=== PATIENT | male | born 1955 | race Caucasian/White ===

== ENCOUNTER 2024-12-29 11:18 | Emergency (ER) | payer MEDICARE, SELFPAY ==
[2024-12-29 11:20] VITALS: BP 172/77; PULSE 71; RESP 19; TEMP 35.6; O2SAT 100; BMI 27.6
[2024-12-29] MEDS: 0.9% Normal Saline (1000mL) 1,000 ML 999 ML IV (11:31)
[2024-12-29] MEDS: Ondansetron 4 MG/2 ML Vial IV ×3 (11:31→13:38)
--- NOTE | 2024-12-29 11:31 | ED.VIS.GI ---
HPI HPI - GI History of Present Illness Chief Complaint: Nausea/Vomiting Informant: patient Abdominal Pain/Flank Pain Onset: - (Denies abdominal pain.) Nausea/Vomiting/Emesis GI Symptom: Positive for Nausea and Vomiting Onset: Today and Yesterday Severity: Moderate Diarrhea/Melena/Hematochezia GI Symptom: Negative for Diarrhea, Melena or Hematochezia Associated Symptoms Associated Symptoms: Negative for Dysuria, Frequency, Hematuria or Urgency Narrative Narrative: 69-year-old male right history of recently diagnosed prostate cancer. No mets. States otherwise pretty healthy has had a history of gout before. States yesterday afternoon he started having nausea vomiting. No diarrhea. No abdominal pain. No dysuria. Subjective fever. at home not sick. No known exposure. Prior similar symptoms: Yes Recent Illness/Hospitalization: No PFSH PFSH Medical History Hx of gout Prostate cancer Home Medications ?Medication ?Instructions ?Recorded ?Last Taken ?Type multivitamin (Daily Multi-Vitamin 1 tab PO DAILY 12/29/24 Unknown History tablet) ondansetron 4 mg disintegrating 4 mg PO Q6H PRN nausea and 12/29/24 Unknown Rx tablet vomiting #7 tabs potassium gluconate 600 mg (99 mg) 600 mg PO DAILY 12/29/24 Unknown History tablet tamsulosin 0.4 mg capsule 0.4 mg PO QHS 12/29/24 Unknown History Allergy/AdvReac Type Severity Reaction Status Date / Time No Known Allergies Allergy Verified 12/29/24 11:28 Surgical History Hx of shoulder replacement Social History Smoking Status: Never smoker ROS ROS ED ROS Narrative Nausea and vomiting. No abdominal pain. No diarrhea. Subjective fever. Constitutional Constitutional ED: Reports fever(s) and subjective ENT ENT ED: Denies ear pain Cardiovascular Cardiovascular: Denies chest pain Respiratory/Chest Respiratory/Chest: Denies cough or dyspnea Gastrointestinal Gastrointestinal: Reports nausea and vomiting; Denies abdominal pain, constipation, diarrhea or melena Genitourinary Genitourinary ED: Denies dysuria or hematuria Musculoskeletal Musculoskeletal: Denies arthralgias or back pain Integumentary Denies abscess or Abrasions Neurologic Neurologic: Denies headache(s) Psychiatric Psychiatric: Denies anxiety Endocrine Endocrinology: Denies polydipsia Hematologic/Lymphatic Hematologic/Lymphatic: Denies easy bleeding Allergic/Immunologic Allergic/Immunologic ED: Denies mouth swelling, tongue swelling or urticaria EXAM Physical Exam Narrative Exam Narrative: 69-year-old male sitting upright in bed. Vital signs stable afebrile. Pulse ox 100% on room air no hypoxia. No distress. H EENT exam pupils round reactive light. Extra motions are intact. No facial droop. Normal speech. Mildly dry mucous membranes. No trauma. Neck nontender no lymphadenopathy. Lungs clear to auscultation bilaterally. Heart regular rhythm rate about 70 no murmur. Abdomen soft, nontender, nondistended, normal bowel sounds without peritoneal signs. No obstruction. No hernia or mass. Soft. Positive bowel sounds. Moving all 4 extremities. Nontender no edema. Normal strength. Back nontender. Neurologically is awake and alert. No focal motor deficits. Benign exam. Const Vital Signs: 12/29/24 11:20 12/29/24 13:20 Temperature 96.0 F L Temperature Source Temporal Pulse Rate 71 56 L Respiratory Rate 19 H 14 Blood Pressure 172/77 H 165/66 H Blood Pressure Mean 108 99 Pulse Ox 100 100 Oxygen Delivery Method Room Air Room Air Positive well nourished and well developed; Negative for obese, cachectic, contractures or unkempt General Appearance ED: well developed and NAD; Negative for unkempt, cachectic, contractures or pallor Nutritional Appearance: Negative for cachectic or obese HEENT Reports dry mucous membranes normocephalic and atraumatic; Negative for trauma or tenderness Mouth ED: Yes dry mucous membranes Mouth: dry mucous membranes Eyes PERRL and EOMs intact bilaterally General Eye ED: Negative for pale conjunctiva or scleral icterus Neck no lymphadenopathy, supple and no JVD Resp normal respiratory effort and clear to auscultation bilaterally Cardio regular rate, regular rhythm, S1 normal heart sound, S2 normal heart sound and no murmurs Rate: Negative for bradycardia or tachycardic Rhythm: Negative for abnormal rhythm GI non-tender, non-distended and no masses Auscultation: normoactive bowel sounds Palpation: soft; Negative for tender, guarding, hernia, mass, pulsatile mass or rebound tenderness present Back/Spine no CVA tenderness General Back: Negative for CVA tenderness Cervical Spine: Negative for cervical spine tenderness Thoracic Spine / Upper Back: Negative for thoracic spinal tenderness Lumbar Spine / Lower Back: Negative for lumbar spinal tenderness Coccyx: Negative for other Extremity full ROM General Extremety ED: Negative for edema or tenderness General Extremity: Negative for edema Neuro CN's II-XII intact bilaterally and moves all extremities Sensorium / Orientation: alert, oriented to person, oriented to place and oriented to time; Negative for orientation impaired, confused, lethargic or stuporous Motor Exam: strength 5/5 throughout Psych mental status grossly normal and thought process normal Appearance: Negative for unkempt Attitude: No agitated Mood & Affect: Negative for depressed, anxious or tearful Skin no wounds General Skin Exam: Negative for jaundice or pallor Lesions: no lesions Rashes: no rashes Trauma: Negative for abrasion Nails: Negative for discolored MDM MDM MDM Narrative Medical decision making narrative: 69-year-old male nausea and vomiting suspect viral syndrome. Abdomen benign. Does not need imaging. Screening labs to be obtained. IV fluids for dehydration. Zofran for nausea. P.o. fluid challenge. Clinically this is not a bowel obstruction. Son is gallbladder. Is not appendicitis. He is having no urinary symptoms. Repeat exam patient doing much better around 1 PM. He had a second dose of Zofran his nausea is improved. His abdomen is completely benign on repeat abdominal exam. I think his white count is elevated due to the nausea and vomiting. When he feels up to it we will try a p.o. fluid challenge if he passes to be discharged home with Zofran treated as a viral syndrome. History & Record Review Discussion w/independent historian: Patient Lab Data Attestation: I reviewed the patient's lab results. Lab results narrative: CBC shows a white count of 16.1. H&H is 17 and 47. Platelets are 363. Electrolytes show a gap of 16. BUN of 14 creatinine 1.2. Glucose 142. Liver enzymes unremarkable. Lipase normal at 23. Labs: Laboratory Results - last 24 hr 12/29/24 11:25 WBC 16.1 H RBC 5.32 Hgb 17.0 H Hct 47.8 MCV 89.8 MCH 32.0 MCHC 35.6 RDW Std Deviation 43.8 RDW Coeff of [place] 13.2 Plt Count 363 MPV 10.2 Immature Gran % (Auto) 0.500 Neut % (Auto) 79.9 H Lymph % (Auto) 11.4 L [place] % (Auto) 7.5 Eos % (Auto) 0.1 Baso % (Auto) 0.6 Absolute Neuts (auto) 12.9 H Absolute Lymphs (auto) 1.84 Nucleated RBC % 0 Sodium 139 Potassium 4.0 Chloride 101 Carbon Dioxide 22.5 Anion Gap 16 H BUN 14 Creatinine 1.20 Estim Creat Clear Calc 59.14 Est GFR (MDRD) Non-Af 65 BUN/Creatinine Ratio 11.6 Glucose 142 H Calcium 10.0 Total Bilirubin 1.66 H AST 20 ALT 20 Alkaline Phosphatase 61 Total Protein 7.8 Albumin 4.5 Globulin 3.3 Albumin/Globulin Ratio 1.4 Lipase 23 Discharge Plan Triage Chief Complaint: Nausea/Vomiting ED Provider: Ryan Fong Dx/Rx/DC Orders Clinical Impression: Nausea & vomiting, Viral syndrome Instructions: ED Viral Syndrome (Adult), ED Vomiting (Adult) Prescriptions: New ondansetron 4 mg tablet,disintegrating 4 mg PO Q6H PRN (Reason: nausea and vomiting) Qty: 7 0RF No Action tamsulosin 0.4 mg capsule 0.4 mg PO QHS multivitamin [Daily Multi-Vitamin] Tablet 1 tab PO DAILY potassium gluconate 600 mg (99 mg) tablet 600 mg PO DAILY Primary Care Provider: Jordi Galeana ADMINISTRATIVE EXECUTIVE Referrals: [facility] Doctor,Out of [Non-Staff] - Activity Restrictions/Additional Instructions: Zofran as needed for nausea. You may swallow it or let it dissolve under your tongue. Take it as needed. Plenty of fluids and rest. Water, 7-Up and Gatorade. Increase diet slowly as tolerated. Follow-up with your doctor if not improving. Return if worse or unable to keep fluids down. Print Language: Yakut Disposition Disposition: Home, Self Care
[2024-12-29 11:53] LABS: Absolute Lymphocyte Count 1.84 X10^3/uL (0.83-4.51); Absolute Neutrophil Count 12.9 X10^3/uL (2.0-7.7); Basophil% 0.6 % (0-1); Eosinophil# 0.02 X10^3/uL; Eosinophils% 0.1 % (0-5); Hematocrit 47.8 % (40-54); Lymphocyte # 1.84 X10^3/ul (0.83-4.51); Lymphocyte % 11.4 % (19-41); Mean Corp Hgb Conc 35.6 g/dL (32-36); Mean Corpuscular Volume 89.8 fL (80-94); Mean Platelet Vol. 10.2 fl (6.2-12.0); Monocyte# 1.21 X10^3/uL; Monocyte% 7.5 % (0-10); NRBC Flagged by Analyzer 0 % (0-5); Neutrophil # 12.87 X10^3/uL (2.7-7.7); Neutrophil % 79.9 % (47-70); Platelet Count 363 K/mm3 (150-450); RBC Distribution Width CV 13.2 % (11.6-14.6); RBC Distribution Width SD 43.8 fl (35.1-43.9); Red Blood Count 5.32 M/mm3 (4.6-6.2); White Blood Count 16.1 K/mm3 (4.4-11.0)
[2024-12-29 12:20] LABS: ALB/GLOB Ratio 1.4 RATIO (0.9-2.4); AST(SGOT) 20 U/L (<=37); Alanine Aminotransfer ALT/SGPT 20 U/L (<=46); Albumin, Serum 4.5 g/dL (3.4-4.8); Alkaline Phosphatase 61 U/L (40-129); Anion Gap 16 (5-15); BUN 14 mg/dL (4-19); BUN/Creat Ratio 11.6 RATIO (10-20); Carbon Dioxide 22.5 mmol/L (21.0-32.0); Chloride 101 mmol/L (98-108); EST Glomerular Filtration Rate 65 (>60); Estimated Creatinine Clearance 59.14 ml/min (50-250); Globulin 3.3 g/dL (2.2-4.2); Glucose 142 mg/dL (70-99); Lipase 23 U/L (13-75); Protein, Total 7.8 g/dL (5.9-8.4); Sodium Level 139 mmol/L (133-145); Total Bilirubin 1.66 mg/dL (0.00-1.30)
[2024-12-29 13:20] VITALS: BP 165/66; PULSE 56; RESP 14; O2SAT 100
[2024-12-29 14:14] VITALS: BP 150/72; PULSE 59; RESP 18; TEMP 36.7; O2SAT 98
== END 2024-12-29 14:16 | disposition home or self-care (01) ==
PROVIDERS: Emergency Provider Emergency Medicine; PCP Nurse Practitioner Family; Referring Provider Emergency Medicine; Visit Provider Emergency Medicine
DX: R11.2 Nausea with vomiting, unspecified (principal); C61 Malignant neoplasm of prostate; E86.0 Dehydration; B34.9 Viral infection, unspecified; R50.9 Fever, unspecified
CPT/HCPCS: 80053; 83690; 85025; 96361; 96374; 96375; 96376; 99285; A4216; J2405

== ENCOUNTER 2024-12-31 12:34 | Emergency (ER) | payer MEDICARE, SELFPAY ==
[2024-12-31 12:35] VITALS: BP 128/78; PULSE 77; RESP 16; TEMP 36.1; O2SAT 97
[2024-12-31 12:38] VITALS: BMI 28.3
--- NOTE | 2024-12-31 13:18 | EX.ED.DYSGE1 ---
HPI History of Present Illness Chief Complaint: Nausea/Vomiting Informant: patient Onset/Context/Timing Onset: Days (3) Context: Gradual Onset Timing: Continuous Quality: Lightheaded Location: Generalized Worsened by: Standing Relieved by: Zofran Narrative Narrative: Patient presents with nausea and vomiting that has been getting worse over the past few days. Patient states he feels lightheaded. Patient states that when he stands up he feels off balance and feels like he might fall. Patient states that this makes his nausea and vomiting worse. Patient denies any hematemesis or coffee-ground emesis. Patient denies any abdominal pain or flank pain.. Patient does admit to some diarrhea. Patient admits to some subjective fevers and chills. Patient admits to a headache. Patient was seen here 2 days ago and was given a prescription for Zofran. Patient states this was helping but he ran out of the Zofran. Patient states he contacted his primary care physician who referred him back to the emergency department. states that they also were going to go to the urgent care but were told at the urgent care that they would just refer him to the emergency department so they came here instead. [facility] Medical History Hx of gout Prostate cancer Home Medications ?Medication ?Instructions ?Recorded ?Last Taken ?Type multivitamin (Daily Multi-Vitamin 1 tab PO DAILY 12/29/24 Unknown History tablet) potassium gluconate 600 mg (99 mg) 600 mg PO DAILY 12/29/24 Unknown History tablet tamsulosin 0.4 mg capsule 0.4 mg PO QHS 12/29/24 Unknown History diazepam 2 mg tablet 2 mg PO TID PRN PRN Vertigo #10 12/31/24 Unknown Rx TABLETS ondansetron 4 mg disintegrating 4 mg PO Q6H PRN nausea and 12/31/24 Unknown Rx tablet vomiting #10 tabs Allergy/AdvReac Type Severity Reaction Status Date / Time acetaminophen (From Vicodin) AdvReac Intermediate Nausea Verified 12/31/24 12:46 hydrocodone (From Vicodin) AdvReac Intermediate Nausea Verified 12/31/24 12:46 Surgical History Hx of shoulder replacement Social History Smoking Status: Never smoker ROS ROS ED Constitutional Constitutional ED: Reports chills, fever(s) and subjective Eyes Eyes: Denies blurry vision or change in vision ENT ENT ED: Denies rhinorrhea or sore throat Cardiovascular Cardiovascular: Denies chest pain or palpitations Respiratory/Chest Respiratory/Chest: Denies cough or dyspnea Gastrointestinal Gastrointestinal: Reports nausea and vomiting Genitourinary Genitourinary ED: Denies dysuria or hematuria Musculoskeletal Musculoskeletal: Denies back pain or neck pain Integumentary Denies abscess or rash Neurologic Neurologic: Reports headache(s); Denies weakness Allergic/Immunologic Allergic/Immunologic ED: Denies mouth swelling or urticaria EXAM Physical Exam Const Vital Signs: 12/31/24 12:35 12/31/24 14:35 Temperature 97 F L Temperature Source Temporal Pulse Rate 77 73 Respiratory Rate 16 15 Blood Pressure 128/78 H 128/87 H Blood Pressure Mean 94 100 Pulse Ox 97 97 Oxygen Delivery Method Room Air Room Air Positive well nourished and well developed Constitutional Narrative: BMI is 28.4. General Appearance ED: well developed and NAD HEENT Reports moist mucous membranes Eyes PERRL and EOMs intact bilaterally Neck supple and no JVD Resp normal respiratory effort and clear to auscultation bilaterally Cardio regular rate and regular rhythm GI non-tender and non-distended Palpation: soft Neuro oriented x3, CN's II-XII intact bilaterally and no sensory deficits noted Neuro Narrative: There is some mild nystagmus with left lateral gaze. There is reproduction of his symptoms with Sandrine-Hallpike maneuver. Sensorium / Orientation: alert Motor Exam: strength 5/5 throughout Psych mental status grossly normal MDM MDM MDM Narrative Medical decision making narrative: Differential diagnosis includes viral illness, labyrinthitis, vertigo, dehydration, electrolyte abnormality, intracranial bleeding, stroke, and gastritis. CT scan of the brain will be obtained to assess for intracranial bleeding and stroke. CBC will be obtained to assess for leukocytosis and anemia. Basic metabolic profile will be obtained to assess for electrolyte abnormality renal function. History & Record Review Additional record(s) reviewed:: Prior ED visit and Prior labs Lab Data Attestation: I reviewed the patient's lab results. Lab results narrative: CBC was reviewed. There is a mild leukocytosis of 14.5. This is improved from previous result. Basic metabolic profile was reviewed. Chloride was slightly low at 96. Creatinine was slightly elevated at 1.29. The remainder was essentially within normal limits. Labs: Laboratory Results - last 24 hr 12/31/24 12:51 WBC 14.5 H RBC 5.63 Hgb 17.6 H Hct 50.2 MCV 89.2 MCH 31.3 MCHC 35.1 RDW Std Deviation 42.6 RDW Coeff of [place] 13.0 Plt Count 392 MPV 10.1 Immature Gran % (Auto) 0.600 Neut % (Auto) 71.9 H Lymph % (Auto) 17.5 L [place] % (Auto) 8.4 Eos % (Auto) 0.8 Baso % (Auto) 0.8 Absolute Neuts (auto) 10.4 H Absolute Lymphs (auto) 2.53 Nucleated RBC % 0 Sodium 136 Potassium 4.0 Chloride 96 L Carbon Dioxide 21.5 Anion Gap 18 H BUN 19 Creatinine 1.29 H Estim Creat Clear Calc 52.91 Est GFR (MDRD) Non-Af 60 BUN/Creatinine Ratio 14.4 Glucose 109 H Calcium 10.0 Radiography Diagnostic Testing: Clinical Impression(s) from Imaging Studies Brain CT 12/31/24 13:28 IMPRESSION: CHRONIC CHANGES. NO ACUTE FINDINGS. Reading Location: [facility] CT scan of the brain was obtained. There is no acute intracranial abnormality. There are chronic changes noted. This was interpreted by the radiologist and was also independently reviewed by myself. Treatment and Re-Evaluation :: Patient was given IV fluids and Zofran. Patient was given a dose of Valium. Patient is feeling better on reevaluation. Patient was able to ambulate without difficulty. Patient was given prescriptions for Valium and Zofran. Patient was instructed to drink plenty of fluids. Patient was instructed to follow-up with her primary care physician in 5 to 7 days. Patient understood and was agreeable with the plan. All questions were answered. Discharge Plan Triage Chief Complaint: Nausea/Vomiting ED Provider: Donal Nuñez Dx/Rx/DC Orders Clinical Impression: Nausea and vomiting, Vertigo Instructions: ED Vertigo, Unspecified, ED Vomiting (Adult) Prescriptions: New diazepam [diazepam] 2 mg tablet 2 mg PO TID PRN PRN (Reason: Vertigo) Qty: 10 0RF Continued ondansetron 4 mg tablet,disintegrating 4 mg PO Q6H PRN (Reason: nausea and vomiting) Qty: 10 0RF No Action tamsulosin 0.4 mg capsule 0.4 mg PO QHS multivitamin [Daily Multi-Vitamin] Tablet 1 tab PO DAILY potassium gluconate 600 mg (99 mg) tablet 600 mg PO DAILY Primary Care Provider: Jordi Galeana NP Referrals: Jordi Galeana NP, [facility] [Primary Care Provider] - 5-7 Days Print Language: Honduran Disposition Disposition: Home, Self Care
--- NOTE | 2024-12-31 13:28 | CT_ITS ---
PROCEDURE: BRAIN/HEAD WITHOUT CONTRAST 12/31/2024 REASON FOR EXAM: HEADACHE TECHNIQUE: Head CT without intravenous contrast. Coronal and Sagittal reconstruction series were provided. One or more dose reduction techniques were used (e.g., Automated exposure control, adjustment of the mA and/or kV according to patient size, use of iterative reconstruction technique. RADIATION DOSE SUMMARY: CTDlvol: 47.06 mGy DLP: 855.03 mGycm COMPARISON: None FINDINGS: Brain: Low density in the periventricular white matter suggests mild chronic small vessel ischemic changes. CSF Spaces: Mild generalized cerebral atrophy Sinuses/Mastoids: Clear at visualized levels Bones: CT/Brain/Head without Contrast IMPRESSION: CHRONIC CHANGES. NO ACUTE FINDINGS. Reading Location: [id number]
[2024-12-31] MEDS: Ondansetron 4 MG/2 ML Vial IV (13:34)
[2024-12-31] MEDS: diazePAM 5 MG Tablet 2.5 MG PO (13:35)
[2024-12-31 13:55] LABS: Absolute Lymphocyte Count 2.53 X10^3/uL (0.83-4.51); Absolute Neutrophil Count 10.4 X10^3/uL (2.0-7.7); Basophil# 0.12 X10^3/uL; Basophil% 0.8 % (0-1); Eosinophil# 0.12 X10^3/uL; Eosinophils% 0.8 % (0-5); Hematocrit 50.2 % (40-54); Hemoglobin 17.6 g/dL (13.0-16.5); Lymphocyte # 2.53 X10^3/ul (0.83-4.51); Lymphocyte % 17.5 % (19-41); Mean Corp Hgb Conc 35.1 g/dL (32-36); Mean Corpuscular Hgb 31.3 pg (27.0-32.0); Mean Corpuscular Volume 89.2 fL (80-94); Mean Platelet Vol. 10.1 fl (6.2-12.0); Monocyte# 1.21 X10^3/uL; Monocyte% 8.4 % (0-10); NRBC Flagged by Analyzer 0 % (0-5); Neutrophil # 10.39 X10^3/uL (2.7-7.7); Neutrophil % 71.9 % (47-70); Platelet Count 392 K/mm3 (150-450); RBC Distribution Width SD 42.6 fl (35.1-43.9); Red Blood Count 5.63 M/mm3 (4.6-6.2); White Blood Count 14.5 K/mm3 (4.4-11.0)
[2024-12-31 14:24] LABS: Anion Gap 18 (5-15); BUN 19 mg/dL (4-19); BUN/Creat Ratio 14.4 RATIO (10-20); Carbon Dioxide 21.5 mmol/L (21.0-32.0); Chloride 96 mmol/L (98-108); Creatinine, Serum 1.29 mg/dL (0.70-1.20); EST Glomerular Filtration Rate 60 (>60); Estimated Creatinine Clearance 52.91 ml/min (50-250); Glucose 109 mg/dL (70-99); Sodium Level 136 mmol/L (133-145)
[2024-12-31 14:35] VITALS: BP 128/87; PULSE 73; RESP 15; O2SAT 97
[2024-12-31 15:48] VITALS: BP 126/75; PULSE 75; RESP 16; TEMP 36.6; O2SAT 98
== END 2024-12-31 15:53 | disposition home or self-care (01) ==
PROVIDERS: Emergency Provider Emergency Medicine; PCP Nurse Practitioner Family; Referring Provider Emergency Medicine; Visit Provider Emergency Medicine
DX: R11.2 Nausea with vomiting, unspecified (principal); R68.83 Chills (without fever); R51.9 Headache, unspecified; R42 Dizziness and giddiness; R19.7 Diarrhea, unspecified; Z85.46 Personal history of malignant neoplasm of prostate
CPT/HCPCS: 70450; 80048; 85025; 96374; 99283; A4216; J2405